=== PATIENT | female | born 1985 | race Caucasian/White ===

== ENCOUNTER 2016-06-13 02:25 | Emergency (ER) | payer BC ==
[2016-06-13 02:32] VITALS: BP 124/74
[2016-06-13] MEDS ORDERED: Acetaminophen TAB* 325 MG PO ONE (03:28)
[2016-06-13] MEDS ORDERED: Penicillin VK TAB* 250 MG PO ONE (03:38)
--- NOTE | 2016-06-13 03:41 | ED ---
Denis Fleming Salem, scribed for Latrice Gonzalez MD on 06/13/16 at 0321 . Throat Pain/Nasal Congestion - HPI Summary HPI Summary: Patient is a 31 y/o female who presents to the ED with otalgia and sore throat since this afternoon. 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 She denies fever or nasal congestion, but reports LNMP was in early May 2016. - History of Current Complaint Chief Complaint: EDEarPain Time Seen by Provider: 06/13/16 02:58 Hx Obtained From: Patient Onset/Duration: Gradual Onset Severity: Moderate - Allergies/Home Medications Allergies/Adverse Reactions: Allergies Allergy/AdvReac Type Severity Reaction Status Date / Time Lactose Intolerance (GI) Allergy GI Upset Verified 09/28/14 07:25 DUST Allergy Severe SNEEZING, Uncoded 09/28/14 07:25 CONGESTION PMH/Surg Hx/FS Hx/Imm Hx Endocrine/Hematology History: Denies: Hx Diabetes, Hx Thyroid Disease Cardiovascular History: Denies: Hx Hypertension Respiratory History: Reports: Hx Asthma Denies: Hx Chronic Obstructive Pulmonary Disease (COPD) GI History: Denies: Hx Ulcer - Surgical History Surgery Procedure, Year, and Place: C SECTION - Immunization History Date of Tetanus Vaccine: utd Date of Influenza Vaccine: utd Infectious Disease History: No Infectious Disease History: Denies: Hx Clostridium Difficile, Hx Hepatitis, Hx Human Immunodeficiency Virus (HIV), Hx of Known/Suspected MRSA, Hx Shingles, Hx Tuberculosis, Hx Known/ Suspected VRE, Hx Known/Suspected VRSA, History Other Infectious Disease, Traveled Outside the [place] in Last 30 Days - Family History Known Family History: Negative: Hypertension - Social History Alcohol Use: Rare Substance Use Type: Reports: None Smoking Status (MU): Former Smoker Type: Cigarettes Amount Used/How Often: 2 cigs in a week Review of Systems Negative: Fever ENT: Other - No nasal decongestion. Positive: Sore Throat, Other - Ear pain. All Other Systems Reviewed And Are Negative: Yes Physical Exam Vital Signs On Initial Exam: Initial Vitals Temp Pulse Resp BP Pulse Ox 98.8 F 106 16 124/74 100 06/13/16 02:28 06/13/16 02:28 06/13/16 02:28 06/13/16 02:28 06/13/16 02:28 - [place] Coma Scale Coma Scale Total: 15 Diagnostics - Vital Signs Vital Signs Temp Pulse Resp BP Pulse Ox 06/13/16 02:28 98.8 F 106 16 124/74 100 - Laboratory Lab Results: Lab Results 06/13/16 Range/Units 03:22 Group A Strep Rapid Positive H (Negative) Lab Statement: Any lab studies that have been ordered have been reviewed, and results considered in the medical decision making process. EENT Course/Dx - Course Course Of Treatment: 31 yo female with strep throat, pt is ok to go home with pen vk. - Diagnoses Provider Diagnoses: Strep pharyngitis Discharge - Discharge Plan Condition: Stable Disposition: HOME Prescriptions: Penicillin VK TAB 500 MG(NF) [Penicillin VK 500 mg Tab(NF)] 500 mg PO BID #19 tab Forms: *Work Release Referrals: Mirella Ward, GAMBLING SUPERVISOR [Primary Care Provider] - The documentation as recorded by the Denis duron Salem accurately reflects the service I personally performed and the decisions made by , Latrice Gonzalez MD.
== END 2016-06-13 03:53 | disposition home or self-care (01) ==
LOC: ED 02:25
DX: J02.0 Streptococcal pharyngitis (principal); J02.9 Acute pharyngitis, unspecified; Z87.891 Personal history of nicotine dependence; H92.09 Otalgia, unspecified ear
CPT/HCPCS: 87651; A9270-GY

== ENCOUNTER 2016-06-27 05:36 | Emergency (ER) | payer BC ==
[2016-06-27 05:54] VITALS: BP 105/67
--- NOTE | 2016-06-28 10:44 | ED ---
Deisy Fleming Matthew, scribed for Buck Corona MD on 06/27/16 at 0728 . Throat Pain/Nasal Congestion - HPI Summary HPI Summary: A 31 y/o female presents to the ED with a sore throat since yesterday. The patient came in on 06/13/16 and was given penicillin for STREP. She states that she missed the last 5 pills of a 5 day course. Initially the patient's symptoms resolved; however, her sore throat has returned. Associated symptoms include erythema of the throat. The patient denies pain with touch. The patient is currently . - History of Current Complaint Chief Complaint: EDThroatPain Time Seen by Provider: 06/27/16 07:10 Hx Obtained From: Patient Onset/Duration: Gradual Onset, Lasting Days, Still Present Severity: Mild Cough: None - Allergies/Home Medications Allergies/Adverse Reactions: Allergies Allergy/AdvReac Type Severity Reaction Status Date / Time Lactose Intolerance (GI) Allergy GI Upset Verified 09/28/14 07:25 DUST Allergy Severe SNEEZING, Uncoded 09/28/14 07:25 CONGESTION PMH/Surg Hx/FS Hx/Imm Hx Endocrine/Hematology History: Denies: Hx Diabetes, Hx Thyroid Disease Cardiovascular History: Denies: Hx Hypertension Respiratory History: Reports: Hx Asthma Denies: Hx Chronic Obstructive Pulmonary Disease (COPD) GI History: Denies: Hx Ulcer - Surgical History Surgery Procedure, Year, and Place: C SECTION - Immunization History Date of Tetanus Vaccine: utd Date of Influenza Vaccine: utd Infectious Disease History: No Infectious Disease History: Denies: Hx Clostridium Difficile, Hx Hepatitis, Hx Human Immunodeficiency Virus (HIV), Hx of Known/Suspected MRSA, Hx Shingles, Hx Tuberculosis, Hx Known/ Suspected VRE, Hx Known/Suspected VRSA, History Other Infectious Disease, Traveled Outside the [place] in Last 30 Days - Family History Known Family History: Negative: Hypertension - Social History Alcohol Use: Rare Substance Use Type: Reports: None Smoking Status (MU): Former Smoker Type: Cigarettes Amount Used/How Often: 2 cigs in a week Review of Systems Constitutional: Negative Eyes: Negative Positive: Sore Throat Cardiovascular: Negative Respiratory: Negative Gastrointestinal: Negative Genitourinary: Negative Musculoskeletal: Negative Skin: Negative Neurological: Negative Psychological: Normal All Other Systems Reviewed And Are Negative: Yes Physical Exam Triage Information Reviewed: Yes Vital Signs On Initial Exam: Initial Vitals Temp Pulse Resp BP Pulse Ox 97.5 F 86 12 105/67 97 06/27/16 05:46 06/27/16 05:46 06/27/16 05:46 06/27/16 05:46 06/27/16 05:46 Vital Signs Reviewed: Yes Appearance: Positive: Well-Appearing, No Pain Distress Skin: Positive: Warm, Dry Head/Face: Positive: Normal Head/Face Inspection Eyes: Positive: EOMI, RITA ENT: Positive: Pharyngeal erythema, Other - Mild posterior cervical lymphadenopathy Respiratory/Lung Sounds: Positive: Clear to Auscultation, Breath Sounds Present Cardiovascular: Positive: RRR, Pulses are Symmetrical in both Upper and Lower Extremities Abdomen Description: Positive: Nontender, Soft Bowel Sounds: Positive: Present Musculoskeletal: Positive: Normal, Strength/ROM Intact Neurological: Positive: Normal, Sensory/Motor Intact, Alert, Oriented to Person Place, Time Psychiatric: Positive: Affect/Mood Appropriate Diagnostics - Vital Signs Vital Signs Temp Pulse Resp BP Pulse Ox 06/27/16 05:46 97.5 F 86 12 105/67 97 - Laboratory Lab Results: Lab Results 06/27/16 Range/Units 05:50 Group A Strep Rapid Positive H (Negative) Lab Statement: Any lab studies that have been ordered have been reviewed, and results considered in the medical decision making process. EENT Course/Dx - Course Assessment/Plan: A 31 y/o female presents to the ED with a sore throat since yesterday. The patient came in on 06/13/16 and was given penicillin for STREP. She states that she missed the last 5 pills of a 5 day course. Initially the patient's symptoms resolved; however, her sore throat has returned. In the ED, her rapid STREP returned positive. The patient was prescribed Penicillin and counseled on the importance of taking her medication completely. She will follow -up with her PCP. - Diagnoses Provider Diagnoses: Strep throat Discharge - Discharge Plan Condition: Stable Disposition: HOME Prescriptions: Penicillin VK TAB 500 MG(NF) [Penicillin VK 500 mg Tab(NF)] 500 mg PO QID #15 tab Patient Education Materials: Strep Throat (ED) Referrals: Mirella Ward NP [Primary Care Provider] - 3 Days Additional Instructions: Please follow-up with your primary care physician. The documentation as recorded by the Deisy duron Matthew accurately reflects the service I personally performed and the decisions made by me, Buck Corona MD.
== END 2016-06-27 07:28 | disposition home or self-care (01) ==
LOC: ED 05:36
DX: J02.0 Streptococcal pharyngitis (principal); J02.9 Acute pharyngitis, unspecified; Z87.891 Personal history of nicotine dependence
CPT/HCPCS: 87651; 99282

== ENCOUNTER 2016-07-13 16:04 | Emergency (ER) | payer BC ==
[2016-07-13 18:15] LABS: Urine Bilirubin Negative (Negative); Urine Glucose Negative (Negative); Urine Nitrite Negative (Negative)
[2016-07-13 18:16] LABS: Hematocrit 34 % (35-47); Hemoglobin 11.2 g/dl (12.0-16.0); Mean Corpuscular HGB Conc 33 g/dl (31-36); Mean Corpuscular Hemoglobin 29 pg (27-31); Mean Corpuscular Volume 88 fL (80-97); Mean Platelet Volume 7 um3 (7.4-10.4); Red Blood Count 3.87 10^6/ul (4.0-5.4); Red Cell Distribution Width 13 % (10.5-15); White Blood Count 11.1 10^3/ul (3.5-10.8)
[2016-07-13 18:27] LABS: Albumin 3.9 g/dL (3.2-5.2); BUN/Creatinine Ratio 14.3 (8-20); C Reactive Protein 8.79 mg/L (< 5.00); Calcium 8.9 mg/dL (8.6-10.3); EGFR African American 190.7 (>60); EGFR Non-African American 148.3 (>60); Globulin 3.3 g/dL (2-4); Potassium 3.5 mmol/L (3.5-5.0); Total Bilirubin 0.3 mg/dL (0.2-1.0); Total Protein 7.2 g/dL (6.4-8.9)
--- NOTE | 2016-07-13 19:27 | RAD ---
INDICATION: Right lower quadrant pain. COMPARISON: There are no prior studies available for comparison. TECHNIQUE: Multiple real-time images of the right lower quadrant were obtained using a graded compression technique. FINDINGS: No free intraperitoneal fluid or localized fluid collections are seen. The appendix was not visualized limiting the study. IMPRESSION: THE APPENDIX WAS NOT VISUALIZED LIMITING THE STUDY.
--- NOTE | 2016-07-13 19:33 | RAD ---
INDICATION: Right adnexal pain, . COMPARISON: There are no prior studies available for comparison. TECHNIQUE: Multiple real-time transvaginal images of the pelvis were obtained. FINDINGS: This exam demonstrates an early intrauterine . A pole and yolk sac are visualized. The heart rate was 183 beats per minute. The crown-rump length measured 2.2 cm corresponding to an estimated gestational age of 8 weeks 6 days. The mean sac diameter measured 3.6 cm corresponding to an estimate gestational age of 9 weeks 1 day. The right ovary measured 2.9 x 2.8 x 3.4 cm. The left ovary measured 2.3 x 1.9 x 2.6 cm. There is a small simple cyst in the right ovary measuring 1.6 x 1.9 x 1.6 cm. No free intraperitoneal fluid is seen. IMPRESSION: 1. EARLY INTRAUTERINE WITH AN ESTIMATED GESTATIONAL AGE OF 8 WEEKS 6 DAYS BY CROWN-RUMP LENGTH. 2. SMALL 1.9 CM RIGHT OVARIAN CYST.
[2016-07-13 20:33] VITALS: BP 122/73
--- NOTE | 2016-07-17 15:43 | ED ---
Elias Fleming SooYoung, scribed for Buck Corona MD on 07/13/16 at 1739 . Abdominal Pain/Female - HPI Summary HPI Summary: A 31 y/o F who is 7-weeks presents to ED with discrete RLQ abd pain worse last night but ongoing today. She called her OB-HEAVY MEDIA OPERATOR, Dr. Hartman, who referred her to ED. /A0. Associated sx: vomiting(2x)/diarrhea last night. She's had a normal appetite, and she ate today approx 3 hours ago and has felt fine, denies nausea. Denies urinary or BM changes. Aggravating factors: movement , standing. PSHx: in 2011. Pert PMHx: tipped uterus - History of Current Complaint Chief Complaint: EDAbdPain Stated Complaint: RT SIDE PAIN/7 WKS PREG Time Seen by Provider: 07/13/16 17:28 Hx Obtained From: Patient Hx Last Menstrual Period: IUD ?: Yes Onset/Duration: Lasting Days - since last night, Still Present Timing: Constant Severity Initially: Moderate Severity Currently: Moderate Pain Intensity: 4 Pain Scale Used: 0-10 Numeric Location: Discrete At: RLQ Aggravating Factor(s): Movement Alleviating Factor(s): Position Associated Signs and Symptoms: Positive: Vomiting, Diarrhea. Negative: Constipation, Urinary Symptoms Allergies/Adverse Reactions: Allergies Allergy/AdvReac Type Severity Reaction Status Date / Time Lactose Intolerance (GI) Allergy GI Upset Verified 09/28/14 07:25 DUST Allergy Severe SNEEZING, Uncoded 09/28/14 07:25 CONGESTION PMH/Surg Hx/FS Hx/Imm Hx Previously Healthy: Yes Endocrine/Hematology History: Denies: Hx Diabetes, Hx Thyroid Disease Cardiovascular History: Denies: Hx Hypertension Respiratory History: Reports: Hx Asthma Denies: Hx Chronic Obstructive Pulmonary Disease (COPD) GI History: Denies: Hx Ulcer - Surgical History Surgery Procedure, Year, and Place: C SECTION - Immunization History Date of Tetanus Vaccine: utd Date of Influenza Vaccine: utd Infectious Disease History: No Infectious Disease History: Denies: Hx Clostridium Difficile, Hx Hepatitis, Hx Human Immunodeficiency Virus (HIV), Hx of Known/Suspected MRSA, Hx Shingles, Hx Tuberculosis, Hx Known/ Suspected VRE, Hx Known/Suspected VRSA, History Other Infectious Disease, Traveled Outside the [place] in Last 30 Days - Family History Known Family History: Negative: Hypertension - Social History Occupation: Employed Full-time Lives: With Family Alcohol Use: Rare Hx Substance Use: No Substance Use Type: Reports: None Hx Tobacco Use: Yes Smoking Status (MU): Former Smoker Type: Cigarettes Amount Used/How Often: 2 cigs in a week Review of Systems Positive: Abdominal Pain, Vomiting, Diarrhea Negative: dysuria, hematuria, incontinence All Other Systems Reviewed And Are Negative: Yes Physical Exam Triage Information Reviewed: Yes Vital Signs On Initial Exam: Initial Vitals Temp Pulse Resp BP Pulse Ox 98.4 F 75 15 120/65 100 07/13/16 16:06 07/13/16 16:06 07/13/16 16:06 07/13/16 16:06 07/13/16 16:06 Vital Signs Reviewed: Yes Appearance: Positive: Well-Appearing, No Pain Distress Skin: Positive: Warm, Skin Color Reflects Adequate Perfusion, Dry Head/Face: Positive: Normal Head/Face Inspection Eyes: Positive: Normal ENT: Positive: Normal ENT inspection Neck: Positive: Supple, Nontender Respiratory/Lung Sounds: Positive: Clear to Auscultation, Breath Sounds Present Cardiovascular: Positive: RRR Abdomen Description: Positive: Soft, Other: - POS: TENDERNESS AT RLQ Musculoskeletal: Positive: Normal Neurological: Positive: Normal Psychiatric: Positive: Normal, Affect/Mood Appropriate Diagnostics - Vital Signs Vital Signs Temp Pulse Resp BP Pulse Ox 07/13/16 16:06 98.4 F 75 15 120/65 100 - Laboratory Lab Results: Lab Results 07/13/16 07/13/16 07/13/16 Range/Units 17:20 17:20 17:20 WBC 11.1 H (3.5-10.8) 10^3/ul RBC 3.87 L (4.0-5.4) 10^6/ul Hgb 11.2 L (12.0-16.0) g/dl Hct 34 L (35-47) % MCV 88 (80-97) fL MCH 29 (27-31) pg MCHC 33 (31-36) g/dl RDW 13 (10.5-15) % Plt Count 284 (150-450) 10^3/ul MPV 7 L (7.4-10.4) um3 Neut % (Auto) 69.9 (38-83) % Lymph % (Auto) 21.9 L (25-47) % [place] % (Auto) 6.7 (1-9) % Eos % (Auto) 1.1 (0-6) % Baso % (Auto) 0.4 (0-2) % Absolute Neuts (auto) 7.8 H (1.5-7.7) 10^3/ul Absolute Lymphs (auto) 2.4 (1.0-4.8) 10^3/ul Absolute Monos (auto) 0.7 (0-0.8) 10^3/ul Absolute Eos (auto) 0.1 (0-0.6) 10^3/ul Absolute Basos (auto) 0 (0-0.2) 10^3/ul Absolute Nucleated RBC 0 10^3/ul Nucleated RBC % 0 Sodium 134 (133-145) mmol/L Potassium 3.5 (3.5-5.0) mmol/L Chloride 104 (101-111) mmol/L Carbon Dioxide 22 (22-32) mmol/L Anion Gap 8 (2-11) mmol/L BUN 7 (6-24) mg/dL Creatinine 0.49 L (0.51-0.95) mg/dL Est GFR ( Amer) 190.7 (>60) Est GFR (Non-Af Amer) 148.3 (>60) BUN/Creatinine Ratio 14.3 (8-20) Glucose 86 (70-100) mg/dL Lactic Acid (0.5-2.0) mmol/L Calcium 8.9 (8.6-10.3) mg/dL Total Bilirubin 0.30 (0.2-1.0) mg/dL AST 14 (13-39) U/L ALT 11 (7-52) U/L Alkaline Phosphatase 75 (34-104) U/L C-Reactive Protein 8.79 H (< 5.00) mg/L Total Protein 7.2 (6.4-8.9) g/dL Albumin 3.9 (3.2-5.2) g/dL Globulin 3.3 (2-4) g/dL Albumin/Globulin Ratio 1.2 (1-3) Lipase 19 (11.0-82.0) U/L Beta HCG, Quant 699473.00 mIU/mL Urine Color Straw Urine Appearance Clear Urine pH 5.0 (5-9) Ur Specific [place] 1.006 L (1.010-1.030) Urine Protein Negative (Negative) Urine Ketones Negative (Negative) Urine Blood Negative (Negative) Urine Nitrate Negative (Negative) Urine Bilirubin Negative (Negative) Urine Urobilinogen Negative (Negative) Ur Leukocyte Esterase Negative (Negative) Urine Glucose Negative (Negative) 07/13/16 Range/Units 17:20 WBC (3.5-10.8) 10^3/ul RBC (4.0-5.4) 10^6/ul Hgb (12.0-16.0) g/dl Hct (35-47) % MCV (80-97) fL MCH (27-31) pg MCHC (31-36) g/dl RDW (10.5-15) % Plt Count (150-450) 10^3/ul MPV (7.4-10.4) um3 Neut % (Auto) (38-83) % Lymph % (Auto) (25-47) % [place] % (Auto) (1-9) % Eos % (Auto) (0-6) % Baso % (Auto) (0-2) % Absolute Neuts (auto) (1.5-7.7) 10^3/ul Absolute Lymphs (auto) (1.0-4.8) 10^3/ul Absolute Monos (auto) (0-0.8) 10^3/ul Absolute Eos (auto) (0-0.6) 10^3/ul Absolute Basos (auto) (0-0.2) 10^3/ul Absolute Nucleated RBC 10^3/ul Nucleated RBC % Sodium (133-145) mmol/L Potassium (3.5-5.0) mmol/L Chloride (101-111) mmol/L Carbon Dioxide (22-32) mmol/L Anion Gap (2-11) mmol/L BUN (6-24) mg/dL Creatinine (0.51-0.95) mg/dL Est GFR ( Amer) (>60) Est GFR (Non-Af Amer) (>60) BUN/Creatinine Ratio (8-20) Glucose (70-100) mg/dL Lactic Acid 1.3 (0.5-2.0) mmol/L Calcium (8.6-10.3) mg/dL Total Bilirubin (0.2-1.0) mg/dL AST (13-39) U/L ALT (7-52) U/L Alkaline Phosphatase (34-104) U/L C-Reactive Protein (< 5.00) mg/L Total Protein (6.4-8.9) g/dL Albumin (3.2-5.2) g/dL Globulin (2-4) g/dL Albumin/Globulin Ratio (1-3) Lipase (11.0-82.0) U/L Beta HCG, Quant mIU/mL Urine Color Urine Appearance Urine pH (5-9) Ur Specific [place] (1.010-1.030) Urine Protein (Negative) Urine Ketones (Negative) Urine Blood (Negative) Urine Nitrate (Negative) Urine Bilirubin (Negative) Urine Urobilinogen (Negative) Ur Leukocyte Esterase (Negative) Urine Glucose (Negative) Result Diagrams: 07/13/16 17:20 07/13/16 17:20 Lab Statement: Any lab studies that have been ordered have been reviewed, and results considered in the medical decision making process. Abdominal Pain Fem Course/Dx - Course Course Of Treatment: Pt is a 38 y/o F who is 7-weeks presenting with RLQ abd pain onset last night. /A0. Associated sx: v/d. Denies nausea, urinary or BM changes. PMHx: tipped uterus, . She is stable and awaiting W/U. - Diagnoses Provider Diagnoses: Abdominal pain - Provider Notifications Discussed Care Of Patient With: Dr. Dee at change of shift Discharge - Discharge Plan Condition: Stable Disposition: HOME Discharge Disposition Comment: Sign out to Dr. Dee, awaiting U/S results Patient Education Materials: (ED), Ovarian Cyst (ED) Referrals: Silvia Hartman MD [Medical Doctor] - Mirella Ward NP [Primary Care Provider] - Additional Instructions: Please follow up with OB-Film Or Tape Librarian. The documentation as recorded by the Elias duron SooYoung accurately reflects the service I personally performed and the decisions made by me, Buck Corona MD.
--- NOTE | 2016-07-18 23:22 | ED ---
Syeda Fleming Erika, scribed for Silvino Dee MD on 07/13/16 at 1951 . Progress - Results/Orders Results/Orders: US read by radiologist - IMPRESSION: 1. EARLY INTRAUTERINE WITH AN ESTIMATED GESTATIONAL AGE OF 8 WEEKS 6 DAYS BY CROWN-RUMP LENGTH. 2. SMALL 1.9 CM RIGHT OVARIAN CYST. Abdomen US read by radiologist - IMPRESSION: THE APPENDIX WAS NOT VISUALIZED LIMITING THE STUDY. Course/Dx - Diagnoses Provider Diagnoses: Abdominal pain Discharge - Discharge Plan Condition: Stable Disposition: HOME Patient Education Materials: Ovarian Cyst (ED), (ED) Referrals: Mirella Ward NP [Primary Care Provider] - Silvia Hartman MD [Medical Doctor] - Additional Instructions: Please follow up with OB-Director Of Architecture. The documentation as recorded by the Syeda duron Erika accurately reflects the service I personally performed and the decisions made by Luiz carreon David, MD.
== END 2016-07-13 20:20 | disposition home or self-care (01) ==
LOC: ED 16:04
DX: R10.31 Right lower quadrant pain (principal); R19.7 Diarrhea, unspecified; R11.10 Vomiting, unspecified; Z87.891 Personal history of nicotine dependence; N83.201 Unspecified ovarian cyst, right side
CPT/HCPCS: 36415; 76705; 76801; 80053; 81003; 83605; 83690; 84702; 85025; 86140; 99282